=== PATIENT | female | born 1980 | race Caucasian/White ===

== ENCOUNTER → 2018-01-27 | Outpatient (CLI) | payer OTHER | LOC: M WUC 16:44 | DX: M25.561 Pain in right knee (principal) | CPT/HCPCS: 73564 ==

== ENCOUNTER → 2019-03-05 | Outpatient (CLI) | payer OTHER ==
[~2019-03-05] MED LIST: LEXA1TAB; NEXI1CAP3; TRAM50TA2
--- NOTE | 2019-03-05 15:14 | REPMRS ---
Patient History The patient states she had a clinical breast exam in February 2019. Family history of breast cancer at age 37 in mother. Taking hormonal contraceptives for 7 years. 3D TOMOSYNTHESIS WAS PERFORMED. Digital Mammo Screening Bilat: March 05, 2019 - Exam #: [id number] Bilateral CC and MLO view(s) were taken. Technologist: Simona Jones, Technologist Prior study comparison: December 06, 2015, bilateral digital mammo screening bilat performed at [facility]. FINDINGS: The breast tissue is extremely dense which could obscure a lesion on mammography. There is no evidence of cancer on this mammogram. Assessment: BI-RADS/ACR category 2 mammogram. Benign Findings. Recommendation Routine screening mammogram of both breasts in 1 year (for women over age 40). This mammogram was interpreted with the aid of an FDA-approved computer-aided dectection system. THE LIFETIME RISK OF BREAST CANCER IS 25.8%, THEREFORE SUPPLEMENTAL SCREENING MRI OF THE BREASTS IS RECOMMENDED IN 6 MONTHS. Electronically Signed By: Deshawn Anaya MD 03/05/19 1030
== END ==
LOC: M RAD 11:35
PROVIDERS: ATTEND Obstetrics & Gynecology
DX: Z12.31 Encounter for screening mammogram for malignant neoplasm of breast (principal); Z80.3 Family history of malignant neoplasm of breast; Z79.3 Long term (current) use of hormonal contraceptives; R92.2 Inconclusive mammogram

== ENCOUNTER → 2019-04-14 | Outpatient (REF) | payer OTHER ==
[2019-04-14 17:48] LABS: HEMATOCRIT 40.8 % (36.0-47.0); HEMOGLOBIN 13.6 g/dl (12.0-15.5); MEAN CORPUSCULAR HGB CONC 33.3 g/dl (32.0-36.5); MEAN CORPUSCULAR VOLUME 89.9 fl (80.0-96.0); PLATELET COUNT, AUTOMATED 251 10^3/uL (150-450); RED BLOOD COUNT 4.54 10^6/uL (4.00-5.40); WHITE BLOOD COUNT 6.2 10^3/uL (4.0-10.0)
[2019-04-14 18:15] LABS: HCG, SERUM QUANTITATIVE 952 MIU/ML
[2019-04-15 09:27] LABS: RUBELLA IgG QUALITATIVE IMMUNE (IMMUNE)
[2019-04-15 09:56] LABS: HEPATITIS C VIRUS ABY INDEX < 0.0 INDEX (<0.8); HIV 1&2 SCREEN CENTAUR NEGATIVE (NEGATIVE)
== END ==
LOC: M LAB REF 16:51
PROVIDERS: ATTEND Obstetrics & Gynecology
DX: Z32.01 Encounter for pregnancy test, result positive (principal); O36.80X0 Pregnancy with inconclusive fetal viability, not applicable or unspecified

== ENCOUNTER → 2019-05-27 | Outpatient (REF) | payer OTHER | LOC: M LABDRAW1 17:11 → M LAB REF 17:11 | PROVIDERS: ATTEND Nurse Practitioner Women's Health | DX: O03.9 Complete or unspecified spontaneous abortion without complication (principal); O20.0 Threatened abortion; Z3A.00 Weeks of gestation of pregnancy not specified ==

== ENCOUNTER 2019-06-05 08:01 | Day surgery (SDC) | payer OTHER ==
[~2019-06-05] VITALS: Ht 167.6 cm; Wt 63.7 kg
[2019-06-05] MEDS ORDERED: PROAAER10 INH (08:36)
[2019-06-05 08:38] LABS: HEMATOCRIT 38.6 % (36.0-47.0); HEMOGLOBIN 13.1 g/dl (12.0-15.5); MEAN CORPUSCULAR HEMOGLOBIN 30.4 pg (27.0-33.0); MEAN CORPUSCULAR HGB CONC 33.9 g/dl (32.0-36.5); MEAN CORPUSCULAR VOLUME 89.6 fl (80.0-96.0); PLATELET COUNT, AUTOMATED 240 10^3/uL (150-450); RED BLOOD COUNT 4.31 10^6/uL (4.00-5.40); WHITE BLOOD COUNT 5.3 10^3/uL (4.0-10.0)
[2019-06-05] MEDS ORDERED: LIDOCAINE 2% INJ 100 MG/5 ML SDV (FOR ANES.) As Ordered ONE (08:48)
[2019-06-05] MEDS ORDERED: PROPOFOL 200 MG/20 ML VIAL As Ordered ONE (08:48)
[2019-06-05] MEDS ORDERED: dexameTHASONE 4 MG/ML 1ML VIAL (J1100) As Ordered ONE (08:48)
[2019-06-05] MEDS ORDERED: ONDANSETRON 4MG/2ML VIAL (J2405) As Ordered ONE (08:48)
[2019-06-05] MEDS ORDERED: fentaNYL 100 MCG/2 ML INJECTION (J3010) As Ordered ONE (08:49)
[2019-06-05] MEDS ORDERED: MIDAZOLAM INJ 2 MG/2 ML VIAL (J2250) As Ordered ONE (08:50)
[2019-06-05] MEDS ORDERED: ACETAMINOPHEN 1000MG 100ML IV BTL (OFIRMEV) (J0131 PER 10MG) As Ordered ONE (09:43)
[2019-06-05] MEDS ORDERED: HYDROMORPHONE HCL 0.5 MG/ 0.5 ML SYRINGE (J1170 PER 1) IV PRN (11:00)
[2019-06-05] MEDS ORDERED: LR 1,000 ML IV SCH (11:00)
[2019-06-05] MEDS ORDERED: PERCOCET 5MG/325MG TAB PO PRN ×2 (11:00→12:00)
[2019-06-05] MEDS ORDERED: fentaNYL 100 MCG/2 ML INJECTION (J3010) IV PRN (11:00)
[2019-06-05] MEDS ORDERED: ONDANSETRON 4MG/2ML VIAL (J2405) IV PRN (11:00)
[2019-06-05 11:02] VITALS: BP 90/54
[2019-06-05] MEDS ORDERED: IBUPROFEN 800 MG TAB PO SCH (12:00)
--- NOTE | 2019-06-05 18:51 | RO ---
DATE OF PROCEDURE: 06/05/2019 Nay is a 38-year-old female who had a 7 weeks demise, underwent Cytotec, had a small amount of bleeding and was still found to have some retained products of conception after presenting with complaint of bleeding and cramping. After extensive counseling, a decision was made to proceed with the suction dilatation and curettage. PREOPERATIVE DIAGNOSIS: Incomplete . POSTOPERATIVE DIAGNOSIS 1. Incomplete . 2. Small amount necrotic tissue noted. OPERATIVE PROCEDURE: Suction, dilatation and curettage. ANESTHESIA: General. SURGEON: Dr. Lucas Patel BLENDING MACHINE FEEDER: COMPLICATIONS: None. ESTIMATED BLOOD LOSS: Less than 20 mL SPECIMENS SENT TO THE LAB: Products of conception with small necrotic tissue. DESCRIPTION OF PROCEDURE: After obtaining informed consent, the patient was taken to the operating room. When general anesthetic was found to be adequate she was then draped and prepped in the usual sterile fashion in dorsal lithotomy position. A straight catheter to the bladder was performed for approximately 100 mL of clear urine. We then placed a weighted speculum in the posterior fornix of the vagina. Using a Ellis retractor, the anterior lip of the cervix was then grasped with a single-tooth tenaculum. The uterus was sounded to approximately 8 cm in size. The cervix serially dilated, a 7 mm suction curette was then inserted. The device was activated and the endometrial cavity was cleared of all clot and debris. Sharp curettage of the endometrial lining was then done. The suction device was reinserted and the cavity cleared of all clot and debris. At this point, good hemostasis noted. All instruments removed. The patient tolerated procedure well. She was then transferred to recovery room in stable condition. Health Services thank you
== END 2019-06-05 11:38 | disposition home or self-care (01) ==
LOC: M SDC 08:01
PROVIDERS: ATTEND Obstetrics & Gynecology
DX: O02.1 Missed abortion (principal); J45.909 Unspecified asthma, uncomplicated; Z91.011 Allergy to milk products
CPT/HCPCS: 36415; 59820; 85027; 86850; 86900; 86901; 88305; J0131; J1100; J2250; J2405; J3010

== ENCOUNTER → 2020-02-17 | Outpatient (CLI) | payer OTHER ==
[~2020-02-17] MED LIST changes: +PROAAER10 INH; +PROHANCE 279.3MG/ML 15ML VIAL As Ordered ONE
--- NOTE | 2020-02-17 12:22 | REP ---
BILATERAL BREAST MRI STUDY WITHOUT AND WITH IV GADOLINIUM: HISTORY: High risk breast cancer screening. Comparison mammography March 05, 2019. TECHNIQUE: Three Linda MRI imaging was performed with a dedicated breast coil. Axial, coronal, and sagittal T1 and T2-weighted scans were obtained with and without fat saturation in the usual fashion. The study includes dynamically acquired post gadolinium enhanced imaging subtraction imaging. Maximal intensity projection and multiplanar re-formation imaging is included as well. The study was interpreted with the aid of RecipharmD, an FDA approved computer-aided detection (CAD) software program, on a dedicated breast MRI work station. The gadolinium enhancement dose is 12 mL of intravenous ProHance. FINDINGS: There is no evidence of axillary adenopathy. There is an extreme pattern of fibroglandular tissue bilaterally corresponding with the density seen mammographically. High-resolution pre and postcontrast silhouette scans show no suspicious morphologic abnormality in either breast. There is a mild to moderate pattern of background parenchymal enhancement. No suspicious focus of enhancement and washout is seen on dynamically acquired sequential post contrast images to suggest malignancy. Subtraction images are unremarkable. IMPRESSION: BIRADS category 1 negative findings. Repeat screening breast MRI study suggested 1 year. Annual screening mammography should continue as well. Electronically Signed by Yash Beavers MD 02/17/2020 12:32 P
== END ==
LOC: M RAD 09:11
PROVIDERS: ATTEND Obstetrics & Gynecology
DX: Z12.39 Encounter for other screening for malignant neoplasm of breast (principal); Z15.01 Genetic susceptibility to malignant neoplasm of breast; Z80.3 Family history of malignant neoplasm of breast
CPT/HCPCS: A9576; C8908

== ENCOUNTER → 2020-04-07 | Outpatient (CLI) | payer OTHER ==
[~2020-04-07] MED LIST changes: -PROHANCE 279.3MG/ML 15ML VIAL As Ordered ONE
--- NOTE | 2020-04-09 12:21 | REPMRS ---
Patient History The patient states she had a clinical breast exam in 02/2020. Family history of breast cancer at age 37 in mother, breast cancer at age 98 in maternal grandmother. Took hormonal contraceptives for 7 years. Digital Woman Screen Mammo: April 07, 2020 - Exam #: [id number] Bilateral CC and MLO view(s) were taken. Technologist: Liana Cooper, Technologist Prior study comparison: March 05, 2019, bilateral digital mammo screening bilat, performed at . December 06, 2015, bilateral digital mammo screening bilat, performed at . FINDINGS: The breast tissue is extremely dense which could obscure a lesion on mammography. The Volpara volumetric breast density category is: D. There is an extremely dense symmetrical pattern of residual fibroglandular tissue. There has been no change in the appearance of the mammogram from the previous studies. There is no interval development of dominant mass, archetectural distortion, or grouped microcalcifications suggestive of malignancy. 3-D tomosynthesis shows no additional findings. Assessment: BI-RADS/ACR category 1 mammogram. Negative Mammogram. Recommendation Breast MRI of both breasts in 6 months. Routine screening mammogram of both breasts in 1 year (for women over age 40). This patient's Lifetime Breast Cancer RIsk is estimated at 29.6 %. Annual screening Breast MRI scanniing is recommended for patient's whose lifetime risk assessment is over 20%. This mammogram was interpreted with the aid of an FDA-approved computer-aided dectection system. Electronically Signed By: Bernard Beavers MD 04/09/20 4825
== END ==
LOC: M WHC 07:02
PROVIDERS: ATTEND Obstetrics & Gynecology
DX: Z12.31 Encounter for screening mammogram for malignant neoplasm of breast (principal)

== ENCOUNTER → 2020-07-07 | Outpatient (REF) | payer OTHER ==
[2020-07-07 16:39] LABS: HEMATOCRIT 40.5 % (36.0-47.0); HEMOGLOBIN 13.7 g/dl (12.0-15.5); MEAN CORPUSCULAR HEMOGLOBIN 29.8 pg (27.0-33.0); MEAN CORPUSCULAR HGB CONC 33.8 g/dl (32.0-36.5); MEAN CORPUSCULAR VOLUME 88.2 fl (80.0-96.0); PLATELET COUNT, AUTOMATED 277 10^3/uL (150-450); RED BLOOD COUNT 4.59 10^6/uL (4.00-5.40); WHITE BLOOD COUNT 8.3 10^3/uL (4.0-10.0)
[2020-07-07 17:54] LABS: HEPATITIS B SURFACE ANTIGEN NEGATIVE (NEGATIVE); HEPATITIS C VIRUS ABY INDEX < 0.0 INDEX (<0.8); HIV 1&2 SCREEN CENTAUR NEGATIVE (NEGATIVE)
[2020-07-07 18:36] LABS: HCG, SERUM QUANTITATIVE 90423 MIU/ML
== END ==
LOC: M LAB REF 16:11
PROVIDERS: ATTEND Obstetrics & Gynecology
DX: O36.80X0 Pregnancy with inconclusive fetal viability, not applicable or unspecified (principal); Z3A.00 Weeks of gestation of pregnancy not specified

== ENCOUNTER → 2020-07-12 | Outpatient (CLI) | payer OTHER ==
--- NOTE | 2020-07-12 16:09 | REP ---
INDICATION: DATING/VIABILITY COMPARISON: None. TECHNIQUE: Transabdominal and transvaginal 1st trimester obstetrical ultrasound with color Doppler evaluation. FINDINGS: Single live early intrauterine is appreciated. Gestational sac with yolk sac and pole identified. [place]-rump length of 21 mm corresponds to 8 weeks 5 days gestational age with estimated date of delivery 02/16/2021. heart rate equals 172 beats per minute. There is a 2 cm round thick walled hypervascular structure in the left adnexa with central cystic component and suggestion for small mural nodule. Such findings cannot exclude a possible concomitant ectopic . Bilateral maternal ovaries are normal in appearance and vascularity. Left ovary measures 3.0 x 1.9 x 1.2 cm (RI 0.49) with left corpus luteum cyst identified. Right ovary measures 2.9 x 1.7 x 1.2 cm (RI 0.49). A fundal fibroid is suggested measuring 2.7 cm maximal diameter. IMPRESSION: 1. Intrauterine at 8 weeks 5 days gestational age appears normal. 2. Hypervascular thick-walled structure in the left adnexa with central cystic component cannot exclude a concomitant ectopic suggesting heterotopic . Immediate attention and correlation with serial HCG levels is recommended. <Electronically signed by Yadiel Vazquez > 07/12/20 [id number]
== END ==
LOC: M WHC 14:57
PROVIDERS: ATTEND Obstetrics & Gynecology
DX: O36.80X0 Pregnancy with inconclusive fetal viability, not applicable or unspecified (principal); Z3A.01 Less than 8 weeks gestation of pregnancy

== ENCOUNTER → 2020-08-01 | Outpatient (CLI) | payer OTHER ==
--- NOTE | 2020-08-01 17:13 | REP ---
INDICATION: DATING AND VIABILITY. COMPARISON: 07/12/2020. TECHNIQUE: Real-time sonographic evaluation of pelvis performed utilizing transabdominal and endovaginal technique. FINDINGS: Again there is a single living intrauterine gestation. The crown-rump length is 53 mm corresponding to an estimated gestational age of 12 weeks 0 days. The estimated age based on last menstrual period is 11 weeks 0 days. The current measurement is at the 94th percentile. heart rate is 170 beats per minute. The cervical length is 3.3 cm and is closed. Once again in the left adnexa, as seen on prior study, adjacent to the left ovary there is a thick-walled sac-like structure with a central cystic area. There is increased vascularity along the hypoechoic wall peripherally with Doppler evaluation. There is mild free fluid in the adjacent adnexa. Including the thick hypoechoic wall the structure measures 1.6 x 1.6 by 1.5 cm. Previous measurements were 2.0 x 1.8 by 1.5 cm. The central cystic portion measures 7 x 6 x 5 mm, previously 8 x 7 by 10 mm. Therefore this structure may be slightly decreased in size compared to the prior study. Within the left ovary there is a cyst measuring 3.2 x 2.5 x 2.3 cm similar to the prior study. In total the left ovary measures 4.3 x 2.1 x 2.1 cm. There is blood flow seen in the left ovary with resistive index 0.51. Right ovary is not visualized. IMPRESSION: Viable intrauterine gestation as above. Once again in the left adnexa, adjacent to the left ovary, is a thick walled cystic structure with peripheral vascularity. Size is slightly less than on the prior study as discussed above. There is a very small amount of adjacent free fluid. Ectopic on the left cannot be excluded. Continued follow-up is recommended. <Electronically signed by Deshawn Anaya > 08/01/20 [id number]
== END ==
LOC: M WHC 15:53
PROVIDERS: ATTEND Obstetrics & Gynecology
DX: O36.80X0 Pregnancy with inconclusive fetal viability, not applicable or unspecified (principal)

== ENCOUNTER → 2020-09-30 | Outpatient (CLI) | payer OTHER ==
--- NOTE | 2020-09-30 09:00 | REP ---
INDICATION: ANATOMY COMPARISON: 08/01/2020 TECHNIQUE: Transabdominal obstetrical ultrasound with color Doppler evaluation. FINDINGS: Examination demonstrates a single live intrauterine in breech presentation. motion is identified by technologist. Placenta is noted anterior and grade 1 without evidence for placenta previa or abruption. Amniotic fluid volume is normal. Cervix measures 4.9 cm in length and appears closed. Incidental 2.9 cm left ovarian cyst.. Gestational age by LMP 19 weeks 4 days with GILDA 02/20/2021. Gestational age by current measurements 20 weeks 5 days with GILDA 02/12/2021. FHR equals 155 beats per minute. BPD: 4.8 cm 20 weeks 4 days HC: 18.0 cm 20 weeks 3 days AC: 14.8 cm 20 weeks 0 days FL: 3.4 cm 20 weeks 4 days HL: 3.5 cm 22 weeks 0 days HC/AC: 1.22 Estimated weight 346 grams (56thpercentile). Anatomical assessment demonstrates normal structures including cranium, choroid plexus, cavum, cerebellum/posterior fossa, facial features, lungs, cardiac ventricular outflow tracts, diaphragm, stomach, cord insertion/three-vessel cord, kidneys/bladder, spine, and extremities. IMPRESSION: Single live intrauterine in breech presentation demonstrating appropriate interval growth. Limited evaluation of the four-chamber heart due to positioning. Remainder of the anatomical assessment is complete and normal. <Electronically signed by Yadiel Vazquez > 09/30/20 0856
== END ==
LOC: M WHC 06:18
PROVIDERS: ATTEND Advanced Practice Midwife
DX: Z36.3 Encounter for antenatal screening for malformations (principal); O09.522 Supervision of elderly multigravida, second trimester; Z3A.20 20 weeks gestation of pregnancy

== ENCOUNTER → 2020-10-25 | Outpatient (CLI) | payer OTHER ==
--- NOTE | 2020-10-25 08:48 | REP ---
INDICATION: F/U ANATOMY COMPARISON: 09/30/2020 TECHNIQUE: Transabdominal obstetrical ultrasound with color Doppler evaluation. FINDINGS: Examination demonstrates a single live intrauterine in cephalic presentation. motion is identified by technologist. Placenta is noted anterior and grade 1 without evidence for placenta previa or abruption. Amniotic fluid volume is normal. Cervix measures 3.8 cm in length and appears closed. Incidental left ovarian cyst again noted measuring 2.9 cm diameter. Gestational age by LMP 23 weeks 5 days with GILDA 02/16/2021 (selected) Gestational age by 1st ultrasound 23 weeks 1 day with GILDA 02/20/2021. Gestational age by current measurements 24 weeks 0 days with GILDA 02/14/2021. FHR equals 155 beats per minute. Estimated weight 651 grams (56% based on selected gestational age). Anatomical assessment demonstrates normal structures including cranium, ventricles, choroid plexus, posterior fossa, facial profile, stomach, kidneys/bladder, spine and three-vessel cord. Views of the heart are again limited due to positioning. IMPRESSION: Single live intrauterine in cephalic presentation demonstrating normal estimated weight Continued limited evaluation of the heart due to positioning. Remainder of the anatomical assessment is complete and normal. <Electronically signed by Yadiel Vazquez > 10/25/20 3602
== END ==
LOC: M WHC 07:22
PROVIDERS: ATTEND Obstetrics & Gynecology
DX: O09.522 Supervision of elderly multigravida, second trimester (principal); Z3A.24 24 weeks gestation of pregnancy

== ENCOUNTER → 2020-11-15 | Outpatient (REF) | payer OTHER ==
[2020-11-15 13:09] LABS: HEMATOCRIT 40.8 % (36.0-47.0); HEMOGLOBIN 13.6 g/dl (12.0-15.5); MEAN CORPUSCULAR HEMOGLOBIN 30.2 pg (27.0-33.0); MEAN CORPUSCULAR HGB CONC 33.3 g/dl (32.0-36.5); MEAN CORPUSCULAR VOLUME 90.5 fl (80.0-96.0); PLATELET COUNT, AUTOMATED 243 10^3/uL (150-450); RED BLOOD COUNT 4.51 10^6/uL (4.00-5.40)
== END ==
LOC: M PLALAB 08:06
PROVIDERS: ATTEND Obstetrics & Gynecology
DX: O09.522 Supervision of elderly multigravida, second trimester (principal)

== ENCOUNTER → 2020-12-20 | Outpatient (REF) | payer OTHER | LOC: M PLALAB 15:59 | PROVIDERS: ATTEND Obstetrics & Gynecology | DX: Z36.89 Encounter for other specified antenatal screening (principal); Z3A.31 31 weeks gestation of pregnancy ==

== ENCOUNTER → 2020-12-23 | Outpatient (CLI) | payer OTHER ==
--- NOTE | 2020-12-23 08:21 | REP ---
INDICATION: F/U ANATOMY COMPARISON: 10/25/2020 TECHNIQUE: Transabdominal obstetrical ultrasound with color Doppler evaluation. FINDINGS: Examination demonstrates a single live intrauterine in cephalic presentation. motion is identified by technologist. Placenta is noted anterior and grade 1 without evidence for placenta previa or abruption. Amniotic fluid volume is normal. Cervix appears closed.. Gestational age by LMP and 1st U/S 31 weeks 4 days with GILDA 02/20/2021. Gestational age by current measurements with GILDA 32 weeks 1 day 02/16/2021. FHR equals 144 beats per minute. JAIMIE: 13.4 cm (8.6-24.2) Umbilical artery SD ratio: 2.29 (1.83-3.86) Estimated weight 1983 grams (58thpercentile). Anatomical assessment demonstrates normal structures including cranium, cerebral ventricles, choroid plexus, cerebellum/posterior fossa, lungs, diaphragm/stomach, kidneys/bladder and three-vessel cord. Continued suboptimal evaluation of the orbits, four-chamber heart. IMPRESSION: Single live intrauterine in cephalic presentation. Continued limited evaluation of the facial features (orbits) and heart due to positioning. <Electronically signed by Yadiel Vazquez > 12/23/20 [id number]
== END ==
LOC: M WHC 06:57
PROVIDERS: ATTEND Obstetrics & Gynecology
DX: O09.523 Supervision of elderly multigravida, third trimester (principal); Z3A.32 32 weeks gestation of pregnancy

== ENCOUNTER → 2021-01-18 | Outpatient (REF) | payer OTHER | LOC: M SFHCWAGY 17:23 | PROVIDERS: ATTEND Advanced Practice Midwife | DX: O09.523 Supervision of elderly multigravida, third trimester (principal) ==

== ENCOUNTER 2021-01-26 08:32 | Outpatient (CLI) | payer OTHER ==
[~2021-01-26] VITALS: Ht 167.6 cm; Wt 86.3 kg
[2021-01-26 09:12] VITALS: BP 124/80
[2021-01-26] MEDS ORDERED: ASPI81CH33 PO (09:23)
[2021-01-26] MEDS ORDERED: PRENTAB9 PO (09:23)
[2021-01-26 09:57] VITALS: BP 115/82
[2021-01-26 10:45] LABS: HEMATOCRIT 38.1 % (36.0-47.0); HEMOGLOBIN 12.7 g/dl (12.0-15.5); MEAN CORPUSCULAR HEMOGLOBIN 29.5 pg (27.0-33.0); MEAN CORPUSCULAR HGB CONC 33.3 g/dl (32.0-36.5); MEAN CORPUSCULAR VOLUME 88.6 fl (80.0-96.0); PLATELET COUNT, AUTOMATED 211 10^3/uL (150-450); WHITE BLOOD COUNT 9.3 10^3/uL (4.0-10.0)
[2021-01-26 11:03] VITALS: BP 131/82
[2021-01-26 11:10] LABS: ALT/SGPT 27 U/L (12-78); BILIRUBIN,TOTAL 0.4 MG/DL (0.2-1.0); CREATININE FOR GFR 0.69 MG/DL (0.55-1.30); GLOMERULAR FILTRATION RATE > 60.0 (>58); LDH LACTATE DEHYDROGENASE 194 U/L (84-246); URIC ACID 5.6 MG/DL (2.6-6.0)
[2021-01-26 11:13] LABS: CREATININE,RANDOM URINE 18.1 MG/DL; TOTAL PROTEIN,RANDOM URINE < 5.0 MG/DL (0.0-12.0)
[2021-01-26 11:24] VITALS: BP 121/81
--- NOTE | 2021-01-26 20:39 | IPNPDOC ---
Text Note Date of Service The patient was seen on 01/26/21. NOTE Labor and Delivery Triage Note: S: A 40-year-old 4 para 2 at 37 weeks 0 days estimated gestational age here for evaluation for preeclampsia. She was seen in the office earlier today with elevated blood pressures. She currently denies any headaches visual changes or abdominal pain. She reports active movement and denies any vaginal bleeding or leakage of fluid or regular pattern of contractions. Reports active movement. O: vss, AF no ctx Serial blood pressures within normal limits Cat 1 tracing Gen: well appearing, NAD Abd: gravid, soft, nttp cx: Deferred - labs wnl A/P: 40-year-old 4 para 2 with isolated elevated blood pressures -not meeting criteria for gestational hypertensive or preeclamptic reassuring status -home with Labor precautions and FKCs. -Follow-up at next OB appointment MD ANTONY Richey,Darwin I+O VSDarwin I+O Laboratory Tests 01/26/21 10:25 Vital Signs Date Time Temp Pulse Resp B/P (MAP) Pulse Ox O2 Delivery O2 Flow Rate FiO2 01/26/21 11:24 71 18 121/81 (94) 01/26/21 09:12 98.9 SRAVAN RICH MD. Jan 26, 2021 20:39
== END 2021-01-26 12:05 | disposition home or self-care (01) ==
LOC: UNDOADMIN 08:32 → M LDI 08:32 → M LDO 08:32 → UNDODISIN 12:05 → M LDO 12:05 → EDSTATUS 01-27 13:49
PROVIDERS: ATTEND Obstetrics & Gynecology
DX: O26.893 Other specified pregnancy related conditions, third trimester (principal); R03.0 Elevated blood-pressure reading, without diagnosis of hypertension; Z3A.37 37 weeks gestation of pregnancy; O09.523 Supervision of elderly multigravida, third trimester; Z91.011 Allergy to milk products
CPT/HCPCS: 36415; 59025; 82247; 82565; 82570; 83615; 84156; 84450; 84460; 84550; 85027; G0378; G0463

== ENCOUNTER 2021-02-05 10:07 | Inpatient (IN) | payer OTHER ==
[~2021-02-05] VITALS: Ht 167.6 cm; Wt 85.1 kg
[2021-02-05] VITALS (15 sets, daily range): BP systolic 122–159; BP diastolic 68–94
[~2021-02-05 10:07] MED LIST changes: +ASPI81CH33 PO; +PRENTAB9 PO
[2021-02-05 10:55] LABS: HEMATOCRIT 39.7 % (36.0-47.0); HEMOGLOBIN 13.6 g/dl (12.0-15.5); MEAN CORPUSCULAR HEMOGLOBIN 29.6 pg (27.0-33.0); MEAN CORPUSCULAR HGB CONC 34.3 g/dl (32.0-36.5); MEAN CORPUSCULAR VOLUME 86.5 fl (80.0-96.0); PLATELET COUNT, AUTOMATED 240 10^3/uL (150-450); RED BLOOD COUNT 4.59 10^6/uL (4.00-5.40); WHITE BLOOD COUNT 11.6 10^3/uL (4.0-10.0)
[2021-02-05] MEDS ORDERED: PENICILLIN G POTASSIUM 5 MU VIAL As Ordered ONE (10:58)
[2021-02-05] MEDS ORDERED: PENICILLIN G POTASSIUM IV 5 MU in D5W MINI-BAG PLUS 100 ML IV ONE (11:00)
[2021-02-05] MEDS ORDERED: OXYTOCIN DRIP 30 UNITS in IV 1 EA IV PRN (11:10)
[2021-02-05] MEDS ORDERED: LR 1,000 ML IV SCH (11:10)
[2021-02-05] MEDS ORDERED: LACTATED RINGER'S 1000 ML IV STA (11:10)
--- NOTE | 2021-02-05 11:50 | HPEPDOC ---
Obstetrical History & Physical General Date of Admission Feb 05, 2021 at 10:32 History of Present Illness Nay is a 40yo with SIUP at 38w3d by lmp c/w 8wk u/s presenting today for large gush of fluid at approx 0900 with continued leaking and contractions started prior to arrival though not yet strong. Good mov ement. No vaginal bleeding. Chief Complaint: Contractions, term, LOF, term Information Provided By: Patient Care Care: Good Care Dating Final EDC: Feb 16, 2021 Final EDC by: LMP, 1st trimester (US) Antepartum Course Diagnos(e)s AMA, history of pre-eclampsia with first Past Medical History Past Obstetrical History : Past Obstetrical History: Multigravida (2004 36w5d pre-E 7lb4oz F, 2006 37wk 1nz40ee F, 2019 8wk sab w/D&C) NURSE NAVIGATOR History: Spontaneous Past Medical History Medical History mild intermittent asthma Surgical History: Dilatation and Curettage Family History Significant Family History: No pertinent family hx Social History Marital Status: Other (life partner) Family situation: Spouse/partner home Psychosocial History: No pertinent psych hx * Smoker: non-smoker Alcohol: Denies Drugs: denies Imunizations Tdap status: current Allergies Coded Allergies: lactase (Verified Adverse Reaction, Mild, N/V/D, 01/26/21) Medications Scheduled Aspirin (Aspirin) 81 Mg Tab.chew, 1 TAB PO DAILY for pain No.137/Iron/Folic Acd ( Vitamin Tablet) 1 Each Tablet, 1 TAB PO DAILY Scheduled PRN Albuterol Sulfate (Proair Hfa) 8.5 Gm Hfa.aer.ad, 2 PUFF INH PRN PRN for SOB/COUGH Physical Examination Physical Examination GENERAL: Alert and oriented times three. ABDOMEN: Gravid and non-tender to touch. FETUS: Is vertex (VTX) by sterile vaginal examination (SVE), grossly ruptured, clear fluid. Nitrazine positive. EXTREMITIES: No edema Laboratory Data 24H LABS Laboratory Tests 2 02/05/21 10:40: Nucleated Red Blood Cells % (auto) 0.0 02/05/21 10:52: Serology Scanned Report Hepatitis B Testing CBC/BMP Laboratory Tests 02/05/21 10:40 Pertinent Laboratoy Data Blood Type: O+ RBC Antibody Screen: Negative HIV: Negative Hepatitis B: Negative Hepatitis C: Negative Rapid Plasma Reagin: Nonreactive Rubella: Immune Chlamydia/Gonorrhea: Negative Group B Streptococcus: Positive Glucose Tolerance Test: 87 Anatomy Ultrasound Ultrasound Date: Sep 30, 2020 Placenta Location: Anterior Normal Anatomy: Yes (but limited eval of heart) Placenta Previa: No Other Ultrasounds 10/25/20 EFW 56%ile, limited eval of heart 2/2 positioning. 12/23/20 EFW 58%ile continued limited eval of facial features (orbits) and heart due to positioning Steroid Therapy Steroid Therapy: No Vaginal Examination Dilation: 2cm Effacement: 70% Station: -2 Cervical Consistency: Soft Cervical Position: Middle Presentation: Cephalic presentation Assessment Heart Rate (FHR): 130 Variability: Moderate Accelerations: Positive Decelerations: Early Tocometer Contractions: Yes Frequency: every 2-5 min. Duration: greater than 60 seconds Strength: palpated as moderate Assessment/Plan Assessment Nay is a 40yo with SIUP at 38w3d by lmp c/w 8wk u/s with active labor now after PROM, clear at 0900. SCE 2/75/-2, nitrazine pos and grossly ruptured. Cat I FHRT with early decels. Ctx q3min. GBS positive. only complicated by AMA. Plan Admit and orient. Script Writer and consent. Diet: clear liquids Group B Streptococcus (GBS) positive, IV PCN 5/2.5 per protocol Labs and intravenous (IV) per unit protocol. Lactated Ringers (LR): Bolus 1000 mL, then at 125 mL/hr. Anticipate normal spontaneous delivery () MD Alejandra Mcpherson Katrina D MD Feb 05, 2021 11:50
[2021-02-05] MEDS ORDERED: BICITRA 30ML SOLN UDC PO ONE (14:50)
[2021-02-05] MEDS ORDERED: AZITHROMYCIN INJ 500 MG, VIAL MATE ADAPTER 1 EACH in NS 250 ML IV ONE (15:00)
[2021-02-05] MEDS ORDERED: PENICILLIN G POTASSIUM IV 2.5 MU in IV 1 EA IV SCH (15:00)
[2021-02-05] MEDS ORDERED: ceFAZolin SOD 2 GM in IV 1 EA IV ONE (15:00)
--- NOTE | 2021-02-05 15:10 | IPNPDOC ---
Text Note Date of Service The patient was seen on 02/05/21. NOTE Decision for Section Since patient arrived there has been periods with repetitive late decels that resolve to Cat I FHRT, but the episodes continue and thus this represents essentially a "positive contraction test" despite no pitocin being given. In addition, patient is making no cervical change, still /-2. Discussed with patient that given her Cat II FHRT remote from delivery, I recommend section and she is amenable. We signed the consent form for PLTCS and blood transfusion after discussing all r/b/a. Will proceed to OR when team is ready 2g IV anceph and 500mg IV azithromycin bicitra Nicu physician aware of plan Kateryna Roberts MD VS,Darwin, I+O VSDarwin I+O Laboratory Tests 02/05/21 10:40 Vital Signs Date Time Temp Pulse Resp B/P (MAP) Pulse Ox O2 Delivery O2 Flow Rate FiO2 02/05/21 12:38 77 18 132/91 (105) 02/05/21 10:36 99.1 Kateryna Roberts MD Feb 05, 2021 15:10
[2021-02-05] MEDS ORDERED: MORPHINE PRES-FREE INJ 10 MG/10 ML VIAL (J2274) As Ordered ONE (15:20)
[2021-02-05] MEDS ORDERED: KETOROLAC 60MG 2ML VIAL As Ordered ONE (15:22)
[2021-02-05] MEDS ORDERED: ONDANSETRON 4MG/2ML VIAL As Ordered ONE (15:22)
[2021-02-05] MEDS ORDERED: dexameTHASONE 4 MG/ML 1ML VIAL (J1100 PER 1MG) As Ordered ONE (15:22)
[2021-02-05] MEDS ORDERED: PHENYLephrine 500MCG 5ML (100MCG/ML) SYRINGE As Ordered ONE (15:23)
[2021-02-05] MEDS ORDERED: ePHEDrine SULFATE 25 MG/5 ML(5MG/ML) SYRINGE As Ordered ONE (15:23)
[2021-02-05] MEDS ORDERED: OXYTOCIN INJ 10 UNITS/ML VIAL (J2590) As Ordered ONE (15:23)
[2021-02-05] MEDS ORDERED: ONDANSETRON 4MG/2ML VIAL IV PRN ×3 (15:35→17:05)
[2021-02-05] MEDS ORDERED: diphenhydrAMINE 50MG/ML VIAL (J1200) IV PRN (15:35)
[2021-02-05] MEDS ORDERED: METOCLOPRAMIDE INJ 10MG/2ML VIAL (J2765 PER 1) IV PRN (15:35)
[2021-02-05] MEDS ORDERED: NALBUPHINE HCL 10 MG/ML AMP (J2300) IV PRN ×2 (15:35→17:05)
[2021-02-05] MEDS ORDERED: NALOXONE INJ 0.4MG/1ML VIAL (J2310 PER 1MG) IV PRN ×2 (15:35)
[2021-02-05 16:15] LABS: CORD GAS ABE A -3.5; CORD GAS ABE V -3.4; CORD GAS HCO3 A 23.3 MEQ/L; CORD GAS HCO3 V 21.8 MEQ/L; CORD GAS O2 SAT A 17.4 %; CORD GAS O2 SAT V 40.5 %; CORD GAS PCO2 A 47.8 mmHg; CORD GAS PH A 7.305 UNITS; CORD GAS PH V 7.354 UNITS; CORD GAS PO2 A 12.1 mmHg; CORD GAS PO2 V 17.4 mmHg; CORD GAS SBC A 19.5 MEQ/L; CORD GAS SBC V 20.1 MEQ/L; CORD GAS TCO2 A 24.7 MEQ/L
[2021-02-05] MEDS ORDERED: OXYTOCIN DRIP 30 UNITS in IV 1 EA IV SCH (17:00)
[2021-02-05] MEDS ORDERED: METHYLERGONOVINE MALEATE 0.2 MG/ML VIAL (J2210) IM ONE (17:00)
[2021-02-05] MEDS ORDERED: RHOGAM 300 MCG (1500 IU) INJ (J2790) IM SCH (17:00)
[2021-02-05] MEDS ORDERED: MEASLES,MUMPS,RUBELLA VACCINE INJ (MMR-II) (90707) SC SCH (17:00)
[2021-02-05] MEDS ORDERED: PERCOCET 5MG/325MG TAB PO PRN (17:00)
[2021-02-05] MEDS ORDERED: fentaNYL 100 MCG/2 ML INJECTION (J3010) IV PRN (17:05)
[2021-02-05] MEDS ORDERED: IBUP80TA PO (17:06)
[2021-02-05] MEDS ORDERED: DOK1CAP7 PO (17:06)
[2021-02-05] MEDS ORDERED: PERCOCET PO (17:06)
[2021-02-05] MEDS ORDERED: OXYTOCIN 30 UNITS IN 0.9% NaCl 500ML IV BAG (J2590) As Ordered ONE (17:40)
--- NOTE | 2021-02-05 18:11 | RO ---
OPERATIVE NOTE DATE OF OPERATION: 02/05/2021 PREOPERATIVE DIAGNOSIS: Nonreassuring heart rate tracing remote from delivery. POSTOPERATIVE DIAGNOSIS: Nonreassuring heart rate tracing remote from delivery. PROCEDURE: Primary low transverse section. SURGEON: Kateryna Roberts MD SUPERINTENDENT OPERATIONS DIVISION: train control technician, Mayelin Gaspar ANESTHESIA: spinal INDICATION FOR OPERATION: Nay is a 40-year-old, G4, now P 2-1-1-3, who presented at 38 weeks, 3 days with gross rupture of membranes, having a diagnosis of prelabor rupture of membranes. Cervix was 2, 75, minus 2 upon presentation. She was GBS positive and received IV penicillin. She was not augmented initially because of desire to treat GBS positive status. However, she started to have regular contractions but no cervical post exchange manager time and intermittently she had a category 2 tracing with recurrent late heart rate decels. They would resolve and then she would have a category 1 tracing for a while but then ultimately she would develop another period of persistent late decelerations and given that she was having no cervical change, amd I was not able to augment her with Pitocin because of the category 2 heart tracing, I discussed with her my recommendation for section for the "positive contraction stress test" that she was giving to herself. MATERIAL FORWARDED TO THE LAB FOR EXAMINATION: Placenta and cord. DESCRIPTION OF FINDINGS: Female in cephalic presentation, Apgars 9 and 9, weight 7 lb, 3 oz or 3250 gm. Normal appearing uterus overall with a very small less than 1 cm fundal serosal fibroid. Fallopian tubes were normal in appearance. Ovaries were not visualized. INFECTION CLASSIFICATION: 2. ESTIMATED BLOOD LOSS: 500 mL IV FLUIDS: 1700 mL of lactated Ringer's. URINE OUTPUT: 100 mL of yellow clear urine. DESCRIPTION OF PROCEDURE: After obtaining informed consent, the patient was taken to the operating room. She had spinal anesthesia administered. Lr catheter and bilateral sequential compression devices were placed. She was prepped and draped in normal sterile fashion in the dorsal supine position with a left lateral tilt. A timeout was performed to confirm patient name, date of , procedure and indication. The team was in agreement. She received two grams of IV Ancef as well as 500 mg of IV azithromycin prophylactically. Spinal anesthesia was found to be adequate using an Allis clamp. A Pfannenstiel skin incision was made with the scalpel and carried through to the underlying layer of fascia. The fascia was incised in the midline and the incision was extended laterally with Rodas scissors. Superior and inferior aspects of the fascial incision were grasped with Ria clamps, elevated and the underlying rectus muscles were dissected off bluntly and sharply. The peritoneum was entered digitally. The rectus muscles were in the midline. The peritoneal incision was extended superiorly and inferiorly with good visualization of the bladder. A Mobius retractor was inserted and the vesicouterine peritoneum was identified, grasped with pickups and entered sharply with Metzenbaum scissors. The incision was extended laterally and a bladder flap was created digitally. The lower uterine segment was scored in a transverse fashion with a scalpel. The uterus was entered bluntly and the incision was extended with traction. The infant's head was elevated to the level of the incision. Fundal pressure was applied. The head was delivered atraumatically in OA position. The anterior shoulder, posterior shoulder and corpus were delivered without difficulty. The nose and mouth were suctioned with bulb suction. Cord was clamped x2 and cut. was handed off to the awaiting nursing team. Cord gases were obtained. pH arterial 7.305, base excess negative 3.5, pH venous 7.354, base excess negative 3.4. Placenta was removed with traction on the cord and uterine massage. The uterus was left in situ and cleared of all clot and debris. The uterine incision was repaired with 0 Vicryl suture in a running locking fashion. A second layer of 0 Monocryl was used to close the hysterotomy incision in an imbricating fashion. The uterine incision was inspected. Hemostasis was noted. The gutters were cleared of all clots. The peritoneum was closed using a 3-0 Vicryl suture in a running fashion. The rectus muscles were not requiring any reapproximation. The fascia was reapproximated with 0 Vicryl suture in a running fashion. The subcutaneous tissue was copiously irrigated. Pramod's fascia was reapproximated using 3-0 Vicryl suture in a running fashion. Skin edges were reapproximated using three inverted interrupted stitches using 3-0 Vicryl sutures, taking great care to put the patient's tattoo that was overlying the Pfannenstiel incision back together the way that it was prior to surgery and lastly a running subcuticular stitch using 4-0 Monocryl suture was performed. The incision was cleaned with a wet lap, dried with a dry lap. Steri-Strips were applied in the usual fashion perpendicular to the Pfannenstiel incision and Optifoam dressing was placed overlying. The vagina was cleared of all blood clot without active bleeding noted. The fundus was firm at U minus 3 cm. All counts were correct x2. The procedure was without complications. The patient tolerated the procedure well. She was taken to the recovery room on labor and delivery in stable condition. She was given 0.2 mg of IM Methergine prior to leaving the OR for the recovery room given her history of a hemorrhage after a prior delivery. KAILEE
[2021-02-05] MEDS: DOCUSATE SODIUM 100MG CAPSULE PO SCH (21:26)
[2021-02-05] MEDS: KETOROLAC 30 MG/ML 1ML VIAL IV SCH (22:25)
[2021-02-06] MEDS: LR 1,000 ML IV SCH ×3 (00:11→17:00)
[2021-02-06 02:00] VITALS: BP 146/86
[2021-02-06] MEDS: KETOROLAC 30 MG/ML 1ML VIAL IV SCH ×2 (04:26→10:28)
[2021-02-06 06:00] VITALS: BP 122/76
[2021-02-06 06:58] LABS: HEMATOCRIT 32.5 % (36.0-47.0); HEMOGLOBIN 10.8 g/dl (12.0-15.5); MEAN CORPUSCULAR HEMOGLOBIN 29.3 pg (27.0-33.0); MEAN CORPUSCULAR HGB CONC 33.2 g/dl (32.0-36.5); MEAN CORPUSCULAR VOLUME 88.1 fl (80.0-96.0); PLATELET COUNT, AUTOMATED 166 10^3/uL (150-450); RED BLOOD COUNT 3.69 10^6/uL (4.00-5.40); WHITE BLOOD COUNT 11.7 10^3/uL (4.0-10.0)
--- NOTE | 2021-02-06 08:23 | IPNPDOC ---
Progress Note Date of Service: Feb 06, 2021 Day#: 1 Progress Note POD 1 SUBJECT: Nay is a 40yo [id number] s/p uncomplicated PLTCS for NRFHT on 02/06, doing well /post-op day # 1. She has ambulated this morning without lightheadedness, lowe catheter still in place draining clear yellow urine, and tolerating regular diet without n/v. Breast feeding without issue. Reports lochia is like a normal period. No f/c/CP/SOB. OBJECTIVE: VITAL SIGNS: Normotensive to mild range bp's, afebrile. Alert and oriented times three. Abdomen: Fundus firm at U-2. Soft, appropriately tender to palpation. Pfannenstiel incision covered by dry clean optifoam dressing. Extremities: no pain with palpation of calves Labs: pre-op H/H 13.6/39.7 post-op H/H 10.8/32.5 ASSESSMENT: Nay is a 40yo [id number] s/p uncomplicated PLTCS for NRFHT on 02/06, doing well /post-op day # 1. Normotensive to mild range bp's, afebrile, hemodynamically stable with no evidence of infection. PLAN: 1. Routine care 2. Toradol and percocet for pain and then motrin and percocet. Colace for bowel regimen. 3. Encourage breast feeding and ambulation and use of IS 4. Remove lowe catheter with due to void in 4 hours 5. Regular diet Kateryna Escoto MD VS, I&O, 24H, [place] Vital Signs/I&O Vital Signs Date Time Temp Pulse Resp B/P (MAP) Pulse Ox O2 Delivery O2 Flow Rate FiO2 02/06/21 06:00 97.0 46 16 122/76 (91) 97 Room Air I&O- Last 24 Hours up to 6 AM 02/06/21 05:59 Intake Total 910 ml Output Total 1215 ml Balance -305 ml Laboratory Data 24H LABS Laboratory Tests 2 02/05/21 10:40: Nucleated Red Blood Cells % (auto) 0.0 02/05/21 10:52: Serology Scanned Report Hepatitis B Testing 02/05/21 16:07: Cord Arterial Blood pH 7.305, Cord Arterial Blood PCO2 47.8, Cord Arterial Blood PO2 12.1, Cord Arterial Blood HCO3 23.3, Cord Arterial Blood Total CO2 24.7, Cord Arterial Blood Base Excess -3.5, Cord Arterial Base Excess (Standard 19.5, Cord Arterial Bld Oxygen Saturation 17.4, Cord Venous Blood pH 7.354, Cord Venous Blood PCO2 40.0, Cord Venous Blood PO2 17.4, Cord Venous Blood HCO3 21.8, Cord Venous Blood Total CO2 23.0, Cord Venous Base Excess (Actual) -3.4, Cord Venous Base Excess (Standard) 20.1, Cord Venous Blood Oxygen Saturation 40.5 02/06/21 06:36: Nucleated Red Blood Cells % (auto) 0.0 CBC/BMP Laboratory Tests 02/05/21 10:40 02/06/21 06:36 Kateryna Roberts MD Feb 06, 2021 08:23
[2021-02-06] MEDS: SIMETHICONE 80MG CHEW TAB PO PRN ×2 (08:30→22:41)
[2021-02-06] MEDS: DOCUSATE SODIUM 100MG CAPSULE PO SCH ×2 (08:30→21:34)
[2021-02-06] MEDS: PRENATAL VITAMINS CHEWABLE TABLET PO SCH (08:30)
[2021-02-06 10:00] VITALS: BP 118/68
[2021-02-06 13:59] VITALS: BP 137/87
[2021-02-06] MEDS: IBUPROFEN 800 MG TAB PO SCH (17:37)
[2021-02-06 17:42] VITALS: BP 112/73
[2021-02-06 22:00] VITALS: BP 113/66
[2021-02-06] MEDS: PERCOCET 5MG/325MG TAB PO PRN (22:41)
[2021-02-07] MEDS: LR 1,000 ML IV SCH (01:00)
[2021-02-07] MEDS: IBUPROFEN 800 MG TAB PO SCH ×3 (01:15→17:53)
[2021-02-07 02:00] VITALS: BP 113/70
[2021-02-07] MEDS: PERCOCET 5MG/325MG TAB PO PRN ×3 (05:26→21:02)
[2021-02-07 05:57] VITALS: BP 130/79
[2021-02-07] MEDS: SIMETHICONE 80MG CHEW TAB PO PRN ×2 (08:04→17:53)
[2021-02-07] MEDS: PRENATAL VITAMINS CHEWABLE TABLET PO SCH (08:04)
[2021-02-07] MEDS: DOCUSATE SODIUM 100MG CAPSULE PO SCH ×2 (08:04→20:01)
[2021-02-07 08:40] VITALS: BP 130/79
--- NOTE | 2021-02-07 09:09 | IPNPDOC ---
Progress Note Date of Service: Feb 07, 2021 Day#: 2 Progress Note POD 2 SUBJECT: Nay is a 40yo [id number] s/p uncomplicated PLTCS for NRFHT on 02/06, doing well overall /post-op day # 2. She does endorse frequent urination every 15min or so and this morning started to have LUQ pain that wraps to her back. She recently took a simethicone thinking maybe it was gas pain but pain has not yet subsided- it is constant, not colicky. No hx of nephrolithiasis. No f/c. She is ambulating without lightheadedness, feels that she has to intentionally empty her bladder all the way (does not happen naturally) but it does eventually empty and she is tolerating regular diet without n/v. Breast feeding without issue. Reports lochia is like a normal period. No CP/SOB. OBJECTIVE: VITAL SIGNS: Normotensive, afebrile. Alert and oriented times three. Abdomen: Fundus firm at U-2. Soft, appropriately tender to palpation. Pfannenstiel incision covered by dry clean optifoam dressing. Extremities: no pain with palpation of calves Labs: pre-op H/H 13.6/39.7 post-op H/H 10.8/32.5 ASSESSMENT: Nay is a 40yo [id number] s/p uncomplicated PLTCS for NRFHT on 02/06, doing well /post-op day # 2. Having frequency of urination with LUQ pain that wraps to her back. I suspect she is having normal fluid shifts with increased urination and gas pains, but will perform urinalysis to rule out nephrolithiasis and UTI. Normotensive, afebrile, hemodynamically stable with no evidence of infection. PLAN: 1. Routine care 2. Motrin and percocet prn pain. Colace for bowel regimen. 3. Encourage breast feeding and ambulation and use of IS 4. Urinalysis this morning 5. Regular diet 6. Possible discharge tomorrow if meeting all milestones Kateryna Escoto MD VS, I&O, 24H, Fishbone Vital Signs/I&O Vital Signs Date Time Temp Pulse Resp B/P (MAP) Pulse Ox O2 Delivery O2 Flow Rate FiO2 02/07/21 08:04 18 02/07/21 05:57 97.6 58 130/79 (96) 100 Room Air I&O- Last 24 Hours up to 6 AM 02/07/21 06:00 Output Total 350 ml Balance -350 ml Kateryna Roberts MD Feb 07, 2021 08:54
[2021-02-07 09:46] LABS: APPEARANCE, URINE CLEAR (CLEAR); BACTERIA, URINE AUTO NEGATIVE (NEGATIVE); BILIRUBIN, URINE AUTO NEGATIVE (NEGATIVE); BLOOD, URINE BLOOD 3+ (NEGATIVE); COLOR, URINE STRAW (YELLOW); GLUCOSE, URINE (UA) AUTO NEGATIVE (NEGATIVE); KETONE, URINE AUTO NEGATIVE (NEGATIVE); LEUKOCYTE ESTERASE, URINE AUTO NEGATIVE (NEGATIVE); NITRITE, URINE AUTO NEGATIVE (NEGATIVE); PROTEIN, URINE AUTO NEGATIVE (NEGATIVE); RBC, URINE AUTO 0 /HPF (0-3); SPECIFIC GRAVITY URINE AUTO 1.002 (1.002-1.035); SQUAMOUS EPITHELIAL CELL UR AU 0 /HPF (0-6); UROBILINOGEN, URINE AUTO 0.2 mg/dL (0.0-2.0); WBC, URINE AUTO 1 /HPF (0-3)
[2021-02-07 10:00] VITALS: BP 141/91
[2021-02-07] MEDS ORDERED: MORPHINE 2 MG/ML 1ML VIAL (J2270) IV ONE (10:00)
[2021-02-07 10:53] LABS: APPEARANCE, URINE CLEAR (CLEAR); BACTERIA, URINE AUTO NEGATIVE (NEGATIVE); BILIRUBIN, URINE AUTO NEGATIVE (NEGATIVE); BLOOD, URINE BLOOD 2+ (NEGATIVE); COLOR, URINE STRAW (YELLOW); GLUCOSE, URINE (UA) AUTO NEGATIVE (NEGATIVE); KETONE, URINE AUTO NEGATIVE (NEGATIVE); LEUKOCYTE ESTERASE, URINE AUTO NEGATIVE (NEGATIVE); NITRITE, URINE AUTO NEGATIVE (NEGATIVE); PROTEIN, URINE AUTO NEGATIVE (NEGATIVE); RBC, URINE AUTO 0 /HPF (0-3); SPECIFIC GRAVITY URINE AUTO 1.002 (1.002-1.035); SQUAMOUS EPITHELIAL CELL UR AU 0 /HPF (0-6); UROBILINOGEN, URINE AUTO 0.2 mg/dL (0.0-2.0); WBC, URINE AUTO 0 /HPF (0-3)
[2021-02-07 14:00] VITALS: BP 123/88
[2021-02-07 17:51] VITALS: BP 120/82
[2021-02-08] MEDS: IBUPROFEN 800 MG TAB PO SCH ×2 (01:30→09:36)
[2021-02-08 06:16] VITALS: BP 117/74
[2021-02-08] MEDS: PERCOCET 5MG/325MG TAB PO PRN ×2 (06:30→13:57)
[2021-02-08] MEDS: SIMETHICONE 80MG CHEW TAB PO PRN ×2 (06:30→14:06)
--- NOTE | 2021-02-08 06:57 | IPNPDOC ---
Progress Note Date of Service: Feb 08, 2021 Day#: 3 Progress Note POD 3 SUBJECT: Nay is a 40yo [id number] s/p uncomplicated PLTCS for NRFHT on 02/06, doing well overall /post-op day # 3. Yesterday she had abdominal pain and frequent urination that was relieved after she was catheterized and 1100ml of UOP was obtained. After that, she was still unable to empty her bladder fully, so indwelling lowe catheter was replaced and it is still in place. She is ambulating without lightheadedness. She is tolerating regular diet without n/v. Breast feeding without issue. Reports lochia is like a normal period. No CP/SOB. OBJECTIVE: VITAL SIGNS: Normotensive, afebrile. Alert and oriented times three. Abdomen: Fundus firm at U-2. Soft, appropriately tender to palpation. Pfannenstiel incision covered by dry clean optifoam dressing. Extremities: no pain with palpation of calves Labs: pre-op H/H 13.6/39.7 post-op H/H 10.8/32.5 ASSESSMENT: Nay is a 40yo [id number] s/p uncomplicated PLTCS for NRFHT on 02/06, doing well /post-op day #3. She had urinary retention diagnosed yesterday and lowe catheter was replaced. Normal UA. Normotensive, afebrile, hemodynamically stable with no evidence of infection. PLAN: 1. Routine care 2. Remove lowe catheter at 0700 with due to void in 4hr. If patient still has urinary retention, she may need to be discharged home with lowe in place. 3. Motrin and percocet prn pain. Colace for bowel regimen. 4. Encourage breast feeding and ambulation and use of IS 5. Regular diet 6. Re-eval for possible discharge this afternoon Kateryna Escoto MD VS, I&O, 24H, [place] Vital Signs/I&O Vital Signs Date Time Temp Pulse Resp B/P (MAP) Pulse Ox O2 Delivery O2 Flow Rate FiO2 02/08/21 06:30 14 02/08/21 06:16 97.6 64 117/74 (88) 99 Room Air I&O- Last 24 Hours up to 6 AM 02/08/21 06:00 Output Total 6175 ml Balance -6175 ml Laboratory Data 24H LABS Laboratory Tests 2 02/07/21 09:10: Urine Color STRAW, Urine Appearance CLEAR, Urine pH 6.0, Urine Specific Bono 1.002, Urine Protein NEGATIVE, Urine Glucose (Auto)(UA) NEGATIVE, Urine Ketones (Auto) NEGATIVE, Urine Blood 3+H, Urine Nitrite NEGATIVE, Urine Bilirubin NEGATIVE, Urine Urobilinogen 0.2, Urine Leukocyte Esterase (Auto) NEGATIVE, Urine WBC (Auto) 1, Urine RBC (Auto) 0, Urine Hyaline Casts (Auto) 0, Urine Bacteria (Auto) NEGATIVE, Urine Squamous Epithelial Cells 0, Urine Sperm (Auto) 02/07/21 10:35: Urine Color STRAW, Urine Appearance CLEAR, Urine pH 6.0, Urine Specific Bono 1.002, Urine Protein NEGATIVE, Urine Glucose (Auto)(UA) NEGATIVE, Urine Ketones (Auto) NEGATIVE, Urine Blood 2+H, Urine Nitrite NEGATIVE, Urine Bilirubin NEGATIVE, Urine Urobilinogen 0.2, Urine Leukocyte Esterase (Auto) NEGATIVE, Urine WBC (Auto) 0, Urine RBC (Auto) 0, Urine Hyaline Casts (Auto) 0, Urine Bacteria (Auto) NEGATIVE, Urine Squamous Epithelial Cells 0, Urine Sperm (Auto) Kateyrna Roberts MD Feb 08, 2021 06:57
[2021-02-08] MEDS: PRENATAL VITAMINS CHEWABLE TABLET PO SCH (09:35)
[2021-02-08] MEDS: DOCUSATE SODIUM 100MG CAPSULE PO SCH (09:35)
[2021-02-08] MEDS ORDERED: DIBUCAINE 1% OINTMENT 30GM TOP PRN (14:20)
--- NOTE | 2021-02-08 23:08 | DSES ---
DISCHARGE SUMMARY DATE OF ADMISSION: 02/05/2021 DATE OF DISCHARGE: 02/08/2021 DISCHARGE DIAGNOSIS: Primary section postop day #3 complicated by continued urinary retention. SURGEON: Dr. Kateryna Roberts HISTORY OF PRESENT ILLNESS: Nay is a 2, para 2, 1, 1, 3 now, who was admitted to labor and delivery for spontaneous rupture of membranes in active labor. She did undergo a primary section on 02/05/2021 due to heart rate of category 2. Estimated blood loss was 500 mL. She delivered a live female weighing 7 pounds 3 ounces, Apgars were 9 and 9. Her postoperative course has been complicated by continued urinary retention. She initially voided and had abdominal pain throughout the afternoon yesterday. A Lr catheter was placed and removed this morning at 6:00 a.m. She is able to void small amounts about 100 mL and then noted to have retained urine of anywhere from 300 to 500 mL following her voiding. Plan is to reinsert the Lr catheter and she is to follow-up in the office in one week for a recheck and Lr removal. OBJECTIVE: Temperature 97.6, pulse 64, respirations 14, blood pressure 117/74. She is alert and oriented x3. Her breasts are soft, nontender. Nipples are intact. Her incision is intact. The Optifoam dressing is present and there is no new drainage observed. Her perineum is intact with lochia rubra scant. Bilateral lower extremities with +2 pitting edema. Her Lr catheter is in place, draining dark yellow urine that is clear. She does report that she is tolerating p.o. fluids and a regular diet. She is passing flatus. She denies bowel movement. Her pain has been well managed with p.o. pain medications. has been established. Preoperative CBC with hemoglobin 13.6, hematocrit 39.7, platelets 240,000. Postoperative CBC with hemoglobin 10.8, hematocrit 32.5, platelets 166,000. PLAN: Discharge the patient home. She is to follow-up at [facility] in one week for removal of her Lr catheter and her incision check. I did review discharge instruction including breast care, incision care, vick care, pelvic rest, activity and lifting restrictions, care for her Lr catheter, danger signs and access to her care provider. Prescriptions for pain medications have been e-prescribed by Dr. Kateryna Roberts to her pharmacy. The patient and her partner have had their questions answered and do desire discharge home.
== END 2021-02-08 17:54 | disposition home or self-care (01) | DRG 788 ==
LOC: M LDO 10:07 → M LDI 10:32 → M OBS 18:13
PROVIDERS: ADMIT Obstetrics & Gynecology; ATTEND Obstetrics & Gynecology
PROC: 10D00Z1 Extraction of Products of Conception, Low, Open Approach (ICD-10-PCS; principal; 2021-02-05 15:30)
DX: O42.02 Full-term premature rupture of membranes, onset of labor within 24 hours of rupture (principal); Z3A.38 38 weeks gestation of pregnancy; O99.824 Streptococcus B carrier state complicating childbirth; O76 Abnormality in fetal heart rate and rhythm complicating labor and delivery; R33.9 Retention of urine, unspecified; O99.892 Other specified diseases and conditions complicating childbirth; Z37.0 Single live birth

== ENCOUNTER → 2022-10-25 | Outpatient (REF) | payer OTHER ==
[~2022-10-25] MED LIST changes: +DOK1CAP4 PO; +IBUP80TA PO; +PERCOCET PO
== END ==
LOC: M SFHCWAGY 12:54
PROVIDERS: ATTEND Nurse Practitioner Family
DX: Z12.4 Encounter for screening for malignant neoplasm of cervix (principal)
CPT/HCPCS: 87624; G0123

== ENCOUNTER → 2022-10-25 | Outpatient (CLI) | payer OTHER | LOC: M WHC 07:50 | PROVIDERS: ATTEND Advanced Practice Midwife | DX: Z12.31 Encounter for screening mammogram for malignant neoplasm of breast (principal) ==

== ENCOUNTER → 2022-12-13 | Outpatient (CLI) | payer OTHER | LOC: M WHC 15:28 | PROVIDERS: ATTEND Nurse Practitioner Family | DX: D25.9 Leiomyoma of uterus, unspecified (principal); N83.201 Unspecified ovarian cyst, right side ==

== ENCOUNTER → 2023-05-21 | Outpatient (CLI) | payer OTHER ==
[~2023-05-21] MED LIST changes: +PROHANCE 279.3MG/ML 15ML VIAL As Ordered ONE
== END ==
LOC: M RAD 15:22
PROVIDERS: ATTEND Nurse Practitioner Family
DX: Z91.89 Other specified personal risk factors, not elsewhere classified (principal); Z12.39 Encounter for other screening for malignant neoplasm of breast

== ENCOUNTER → 2023-11-12 | Outpatient (CLI) | payer OTHER ==
[~2023-11-12] MED LIST changes: -PROHANCE 279.3MG/ML 15ML VIAL As Ordered ONE
[2023-11-12 18:54] LABS: BASO % 0.4 % (0.0-1.0); EOS # 0.1 10^3/uL (0.0-0.5); EOS % 0.8 % (0.0-3.0); HEMATOCRIT 40.4 % (36.0-47.0); HEMOGLOBIN 13.5 g/dl (12.0-15.5); LYMPH # 2.7 10^3/uL (1.5-5.0); LYMPH % 27.4 % (24.0-44.0); MEAN CORPUSCULAR HEMOGLOBIN 29.3 pg (27.0-33.0); MEAN CORPUSCULAR HGB CONC 33.4 g/dl (32.0-36.5); MEAN CORPUSCULAR VOLUME 87.8 fl (80.0-96.0); MONO # 0.6 10^3/uL (0.0-0.8); MONO % 6.4 % (2.0-8.0); NEUTROPHILS # 6.4 10^3/uL (1.5-8.5); NEUTROPHILS % 64.5 % (36.0-66.0); PLATELET COUNT, AUTOMATED 281 10^3/uL (150-450); WHITE BLOOD COUNT 9.9 10^3/uL (4.0-10.0)
[2023-11-12 19:28] LABS: ALBUMIN 3.8 G/DL (3.2-5.2); ALKALINE PHOSPHATASE 43 U/L (46-116); ALT/SGPT 19 U/L (7.0-40); AST/SGOT 16 U/L (<34); BILIRUBIN,TOTAL 0.6 MG/DL (0.3-1.2); BLOOD UREA NITROGEN 12 MG/DL (9-23); CALCIUM LEVEL 9.2 MG/DL (8.5-10.1); CARBON DIOXIDE LEVEL 28 MMOL/L (20-31); CHLORIDE LEVEL 107 MMOL/L (98-107); CHOLESTEROL LEVEL 131 MG/DL (<200); CHOLESTEROL RISK RATIO 2.48 (<5); CREATININE FOR GFR 0.77 MG/DL (0.55-1.30); FREE T4 0.99 NG/DL (0.89-1.76); GLOMERULAR FILTRATION RATE > 60.0 (>58); GLUCOSE, FASTING 103 MG/DL (60-100); HDL CHOLESTEROL 52.8 MG/DL (>40); NON-HDL-C 78.2 MG/DL; POTASSIUM SERUM 4.6 MMOL/L (3.5-5.1); SODIUM LEVEL 139 MMOL/L (136-145); THYROID STIMULATING HORMONE 1.372 uIU/ML (0.55-4.78); TOTAL PROTEIN 6.4 G/DL (5.7-8.2); TRIGLYCERIDES LEVEL 71 MG/DL (<150)
[2023-11-12 19:29] LABS: TOTAL 25(OH) VITAMIN D 28.9 NG/ML (20.0-100.0)
== END ==
LOC: M PLALAB 14:41
PROVIDERS: ATTEND Nurse Practitioner Family
DX: R53.83 Other fatigue (principal); E55.9 Vitamin D deficiency, unspecified; Z13.220 Encounter for screening for lipoid disorders

== ENCOUNTER → 2024-02-12 | Outpatient (CLI) | payer OTHER | LOC: M PLAIMG 11:35 | PROVIDERS: ATTEND Physician Assistant Medical | DX: M79.671 Pain in right foot (principal) ==

== ENCOUNTER → 2024-07-09 | Outpatient (REF) | payer OTHER ==
[2024-07-09 19:19] LABS: Trichomonas vaginalis (AMP) NOT DETECTED (NEGATIVE)
[2024-07-09 19:43] LABS: GC DNA AMPLIFICATION NEGATIVE (NEGATIVE)
== END ==
LOC: M SFHCWAGY 17:13
PROVIDERS: ATTEND Nurse Practitioner Family
DX: Z11.3 Encounter for screening for infections with a predominantly sexual mode of transmission (principal)

== ENCOUNTER → 2024-07-09 | Outpatient (CLI) | payer OTHER | LOC: M WHC 14:28 | PROVIDERS: ATTEND Nurse Practitioner Family | DX: Z12.31 Encounter for screening mammogram for malignant neoplasm of breast (principal); R92.343 Mammographic extreme density, bilateral breasts ==

== ENCOUNTER → 2024-11-21 | Outpatient (CLI) | payer OTHER ==
[2024-11-21 10:17] LABS: BASO % 0.6 % (0.0-1.0); EOS # 0.1 10^3/uL (0.0-0.5); EOS % 1.5 % (0.0-3.0); HEMATOCRIT 42.4 % (36.0-47.0); HEMOGLOBIN 14.6 g/dl (12.0-15.5); LYMPH # 2.4 10^3/uL (1.5-5.0); LYMPH % 36.1 % (24.0-44.0); MEAN CORPUSCULAR HEMOGLOBIN 29.6 pg (27.0-33.0); MEAN CORPUSCULAR HGB CONC 34.4 g/dl (32.0-36.5); MONO # 0.4 10^3/uL (0.0-0.8); MONO % 5.7 % (2.0-8.0); NEUTROPHILS # 3.7 10^3/uL (1.5-8.5); NEUTROPHILS % 55.8 % (36.0-66.0); PLATELET COUNT, AUTOMATED 297 10^3/uL (150-450); RED BLOOD COUNT 4.93 10^6/uL (4.00-5.40); WHITE BLOOD COUNT 6.6 10^3/uL (4.0-10.0)
[2024-11-21 10:45] LABS: ALKALINE PHOSPHATASE 43 U/L (35-104); ALT/SGPT 22 U/L (7.0-40); AST/SGOT 15 U/L (<34); BILIRUBIN,TOTAL 1.3 MG/DL (0.3-1.2); BLOOD UREA NITROGEN 12 MG/DL (9-23); CALCIUM LEVEL 9.3 MG/DL (8.5-10.1); CARBON DIOXIDE LEVEL 29 MMOL/L (20-31); CHLORIDE LEVEL 105 MMOL/L (98-107); CHOLESTEROL LEVEL 147 MG/DL (<200); CHOLESTEROL RISK RATIO 2.62 (<5); CREATININE FOR GFR 0.75 MG/DL (0.55-1.30); GLOMERULAR FILTRATION RATE > 60.0 (>58); GLUCOSE, FASTING 87 MG/DL (60-100); HDL CHOLESTEROL 56.1 MG/DL (>40); LDL CHOLESTEROL 79.9 MG/DL (<100); NON-HDL-C 90.9 MG/DL; POTASSIUM SERUM 4.5 MMOL/L (3.5-5.1); SODIUM LEVEL 141 MMOL/L (136-145); TOTAL PROTEIN 6.8 G/DL (5.7-8.2); TRIGLYCERIDES LEVEL 55 MG/DL (<150)
[2024-11-21 10:48] LABS: THYROID STIMULATING HORMONE 2.176 uIU/ML (0.55-4.78)
[2024-11-21 10:50] LABS: FREE T4 1.15 NG/DL (0.89-1.76)
== END ==
LOC: M LAB 09:35
PROVIDERS: ATTEND Nurse Practitioner Family
DX: Z00.00 Encounter for general adult medical examination without abnormal findings (principal); Z13.220 Encounter for screening for lipoid disorders; E55.9 Vitamin D deficiency, unspecified; R53.83 Other fatigue

== ENCOUNTER → 2025-07-12 | Outpatient (CLI) | payer OTHER | LOC: M PLALAB 16:28 | PROVIDERS: ATTEND Nurse Practitioner Family | DX: R00.2 Palpitations (principal) ==

== ENCOUNTER → 2025-07-12 | Outpatient (CLI) | payer OTHER | LOC: M WHC 15:02 | PROVIDERS: ATTEND Nurse Practitioner Family | DX: Z12.31 Encounter for screening mammogram for malignant neoplasm of breast (principal) ==

== ENCOUNTER → 2025-08-10 | Outpatient (CLI) | payer OTHER ==
[2025-08-10 13:57] LABS: BASO # 0.0 10^3/uL (0.0-0.2); BASO % 0.5 % (0.0-1.0); EOS # 0.0 10^3/uL (0.0-0.5); EOS % 0.5 % (0.0-3.0); LYMPH # 2.2 10^3/uL (1.5-5.0); LYMPH % 34.8 % (24.0-44.0); MONO # 0.4 10^3/uL (0.0-0.8); MONO % 6.3 % (2.0-8.0); NEUTROPHILS # 3.6 10^3/uL (1.5-8.5); NEUTROPHILS % 57.6 % (36.0-66.0); PLATELET COUNT, AUTOMATED 292 10^3/uL (150-450)
[2025-08-10 13:59] LABS: ALT/SGPT 26 U/L (7.0-40); AST/SGOT 22 U/L (<34); CALCIUM LEVEL 9.2 MG/DL (8.5-10.1); CARBON DIOXIDE LEVEL 31 MMOL/L (20-31); CHLORIDE LEVEL 105 MMOL/L (98-107); CREATININE FOR GFR 0.73 MG/DL (0.55-1.30); GLOMERULAR FILTRATION RATE > 90.0 (>58); POTASSIUM SERUM 4.3 MMOL/L (3.5-5.1); SODIUM LEVEL 142 MMOL/L (136-145)
[2025-08-10 17:09] LABS: APPEARANCE, URINE CLEAR (CLEAR); BACTERIA, URINE AUTO NEGATIVE (NEGATIVE); BILIRUBIN, URINE AUTO NEGATIVE (NEGATIVE); BLOOD, URINE BLOOD NEGATIVE (NEGATIVE); GLUCOSE, URINE (UA) AUTO NEGATIVE (NEGATIVE); KETONE, URINE AUTO NEGATIVE (NEGATIVE); LEUKOCYTE ESTERASE, URINE AUTO NEGATIVE (NEGATIVE); NITRITE, URINE AUTO NEGATIVE (NEGATIVE); PROTEIN, URINE AUTO NEGATIVE (NEGATIVE); RBC, URINE AUTO 0 /HPF (0-3); SPECIFIC GRAVITY URINE AUTO 1.004 (1.002-1.035); SQUAMOUS EPITHELIAL CELL UR AU 0 /HPF (0-6); UROBILINOGEN, URINE AUTO 0.2 mg/dL (0.0-2.0); WBC, URINE AUTO 0 /HPF (0-3)
== END ==
LOC: M PLALAB 11:02
PROVIDERS: ATTEND Nurse Practitioner Family
DX: R10.A2 Flank pain, left side (principal)